=== PATIENT | female | born 1970 | race Caucasian/White ===

== ENCOUNTER 2017-07-27 14:07 | Emergency (ER) | payer MEDICAID, OTHER ==
[~2017-07-27] VITALS: Ht 167.6 cm; Wt 85.5 kg
[~2017-07-27 14:07] MED LIST: HYDR-2768 PO
[2017-07-27 14:09] VITALS: BP 179/88; PULSE 107; RESP 16; TEMP 98; O2SAT 98
[2017-07-27] MEDS ORDERED: LISI10TA3 PO (14:19)
[2017-07-27] MEDS ORDERED: METO1TAB42 PO (14:19)
--- NOTE | 2017-07-27 14:44 | PD ---
HPI Chief Complaint: Shuttle Driver Problem/Complaint Time Seen by Provider: 14:16 Travel History International Travel<30 days: No Contact w/Intl Traveler<30days: No Traveled to known affect area: No History of Present Illness HPI The patient is a 46-year-old female who presents to the emergency department for evaluation of abnormal vaginal bleeding. The patient is with one previous and one previous spontaneous . The patient states her last normal menstrual cycle was on July 10, 2017. The patient is started to have additional bleeding on July 22. The patient describes the bleeding as bright red without any visible clots. She does complain of mild lower abdominal pain and cramping with the bleeding. The patient does have a IUD in place and is sexually active. She denies any known trauma to the affected area. She denies any assisted fever, chills, or sweats. The patient made an appointment with her store detective, Dr. Carpio, for next week, however , was advised to come the emergency department for further evaluation. Symptoms are mild to moderate without any known alleviating or exacerbating factors. PFSH Past Medical History Hx Anticoagulant Therapy: No Arthritis: Yes (RHEUMATOID) Asthma: Yes Autoimmune Disease: No Cardiovascular Problems: Yes (HTN) High Cholesterol: Yes (LONG AGO) Diabetes: No Diminished Hearing: No Endocrine: No Gastrointestinal Disorders: Yes (GASTRITIS,ESOPHAGITIS,DIGESTIVE PROBLEMS) GERD: Yes Genitourinary: Yes (UTI'S) Hypertension: Yes Immune Disorder: Yes Medical other: Yes (IUD IN PLACE 8YEARS (2018)) Musculoskeletal: Yes (CHRONIC BACK PROBLEMS, 3 HERNIATED DISC) Neurologic: Yes Respiratory: Yes Tetanus Vaccination: Unknown Influenza Vaccination: No PNEUMOCCOCAL Vaccine (Year): 1 ?: Unknown Ovarian Cysts: Yes Past Surgical History AICD: No Appendectomy: Yes Oral Surgery: Yes (T&A AT 6 YEARS OF AGE) Tonsillectomy: Yes Other Surgery: Yes Social History Alcohol Use: No Tobacco Use: Yes (2 PPD) Substance Use: No Allergies-Medications (Allergen,Severity, Reaction): Coded Allergies: No Known Allergies (Verified Adverse Reaction, Unknown, 07/27/17) Reported Meds & Prescriptions Reported Meds & Active Scripts Active Reported Lisinopril 10 Mg Tab 10 Mg PO DAILY Metoprolol Succinate ER 24 HR (Metoprolol Succinate) 25 Mg Tab 25 Mg PO DAILY Review of Systems Except as stated in HPI: all other systems reviewed are Neg General / Constitutional: No: Fever HENT: No: Lightheadedness Cardiovascular: No: Chest Pain or Discomfort, Dyspnea on exertion Gastrointestinal: No: Nausea, Vomiting, Abdominal Pain Genitourinary: Positive: Pelvic Pain, Vaginal Bleeding, No: Dysuria, Discharge Musculoskeletal: No: Weakness Physical Exam Narrative GENERAL: Awake, alert, pleasant 46-year-old female appears her stated age and is in no acute respiratory distress. SKIN: Focused skin assessment warm/dry. HEAD: Atraumatic. Normocephalic. EYES: No injection or drainage. NECK: Trachea midline. No JVD. GASTROINTESTINAL: Abdomen soft, non-tender, nondistended. Hepatic and splenic margins not palpable. Back: No CVA tenderness. Genitourinary: The exam was performed in the presence of a female nurse. External examination is unremarkable except for a small amount of dark-colored blood at the introitus. Speculum examination reveals a small amount of dark- colored blood with a few clots in the vaginal vault. Cervix is fish[place] with visible IUD string. Blood is coming from the cervical os. No visible bright arterial bleeding or hemorrhaging. MUSCULOSKELETAL: No obvious deformities. No clubbing. No cyanosis. No edema. NEUROLOGICAL: Awake and alert. No obvious cranial nerve deficits. Motor grossly within normal limits. Normal speech. PSYCHIATRIC: Appropriate mood and affect; insight and judgment normal. Data Data Last Documented VS Vital Signs Date Time Temp Pulse Resp B/P (MAP) Pulse Ox O2 Delivery O2 Flow Rate FiO2 07/27/17 14:09 98.0 107 16 179/88 (118) 98 Orders Orders Complete Blood Count With Diff (07/27/17 14:36) Ed Urine Pregnancytest Poc (07/27/17 14:36) Labs Laboratory Tests Test 07/27/17 14:45 White Blood Count 7.1 TH/MM3 Red Blood Count 4.51 MIL/MM3 Hemoglobin 12.2 GM/DL Hematocrit 38.1 % Mean Corpuscular Volume 84.4 FL Mean Corpuscular Hemoglobin 27.0 PG Mean Corpuscular Hemoglobin Concent 32.0 % Red Cell Distribution Width 14.6 % Platelet Count 339 TH/MM3 Mean Platelet Volume 7.6 FL Neutrophils (%) (Auto) 55.1 % Lymphocytes (%) (Auto) 39.5 % Monocytes (%) (Auto) 3.5 % Eosinophils (%) (Auto) 1.4 % Basophils (%) (Auto) 0.5 % Neutrophils # (Auto) 4.0 TH/MM3 Lymphocytes # (Auto) 2.8 TH/MM3 Monocytes # (Auto) 0.2 TH/MM3 Eosinophils # (Auto) 0.1 TH/MM3 Basophils # (Auto) 0.0 TH/MM3 CBC Comment DIFF FINAL Differential Comment [facility] Medical Decision Making Medical Screen Exam Complete: Yes Emergency Medical Condition: Yes Medical Record Reviewed: Yes Interpretation(s) Laboratory Tests Test 07/27/17 14:45 White Blood Count 7.1 TH/MM3 Red Blood Count 4.51 MIL/MM3 Hemoglobin 12.2 GM/DL Hematocrit 38.1 % Mean Corpuscular Volume 84.4 FL Mean Corpuscular Hemoglobin 27.0 PG Mean Corpuscular Hemoglobin Concent 32.0 % Red Cell Distribution Width 14.6 % Platelet Count 339 TH/MM3 Mean Platelet Volume 7.6 FL Neutrophils (%) (Auto) 55.1 % Lymphocytes (%) (Auto) 39.5 % Monocytes (%) (Auto) 3.5 % Eosinophils (%) (Auto) 1.4 % Basophils (%) (Auto) 0.5 % Neutrophils # (Auto) 4.0 TH/MM3 Lymphocytes # (Auto) 2.8 TH/MM3 Monocytes # (Auto) 0.2 TH/MM3 Eosinophils # (Auto) 0.1 TH/MM3 Basophils # (Auto) 0.0 TH/MM3 CBC Comment DIFF FINAL Differential Comment Differential Diagnosis Differential diagnosis includes fibroid, dysfunctional uterine bleeding, menorrhagia, , ectopic , spontaneous , IUD displacement, coagulopathy, vaginal laceration/tear. Narrative Course IV was established, labs are drawn and sent, and the patient was placed on cardiac telemetry monitoring. Bedside UA test was obtained, was negative. CBC was sent to lab. A pelvic exam was performed in the presence of a female nurse. The patient's hemoglobin was normal at 12.2, no evidence of anemia. Pelvic examination reveals a small metal blood in the vaginal vault, IUD strings in place, but is coming from the cervical os. Patient is stable for outpatient follow-up with her store detective, may benefit from outpatient ultrasound and follow-up with her promotional advertising assistant. Return if symptoms worsen or progress. Diagnosis Primary Impression: Vaginal bleeding Patient Instructions: General Instructions Additional Instructions: Please provide the patient a copy of her lab results at discharge. Follow-up with her store detective as scheduled. Return if symptoms worsen or progress. Disposition: 01 DISCHARGE HOME Condition: Stable Sergei Blount MD Jul 27, 2017 14:44
[2017-07-27 14:55] LABS: BASOPHIL % 0.5 % (0.0-2.0); EOSINOPHIL # 0.1 TH/MM3 (0-0.4); EOSINOPHIL % 1.4 % (0.0-4.0); HEMATOCRIT 38.1 % (35.0-46.0); HEMOGLOBIN 12.2 GM/DL (11.6-15.3); LYMPH % 39.5 % (9.0-44.0); LYMPHOCYTE # 2.8 TH/MM3 (1.0-4.8); MEAN CELL VOLUME 84.4 FL (80.0-100.0); MEAN PLATELET VOLUME 7.6 FL (7.0-11.0); MONO % 3.5 % (0.0-8.0); MONOCYTE # 0.2 TH/MM3 (0-0.9); NEUT % 55.1 % (16.0-70.0); PLATELET COUNT 339 TH/MM3 (150-450); RED BLOOD COUNT 4.51 MIL/MM3 (4.00-5.30); RED CELL DISTRIBUTION WIDTH 14.6 % (11.6-17.2); WHITE BLOOD COUNT 7.1 TH/MM3 (4.0-11.0)
== END 2017-07-27 16:08 | disposition home or self-care (01) ==
LOC: PHED 14:07
DX: N93.9 Abnormal uterine and vaginal bleeding, unspecified (principal); R10.2 Pelvic and perineal pain; M06.9 Rheumatoid arthritis, unspecified; I10 Essential (primary) hypertension; E78.00 Pure hypercholesterolemia, unspecified; K21.9 Gastro-esophageal reflux disease without esophagitis; F17.200 Nicotine dependence, unspecified, uncomplicated; Z79.899 Other long term (current) drug therapy
CPT/HCPCS: 84703; 85025; 99284